=== PATIENT | female | born 1945 | race Caucasian/White ===

== ENCOUNTER 2022-03-05 12:02 | Day surgery (SDC) | payer MEDICARE ==
[~2022-03-05] VITALS: Ht 165.1 cm; Wt 101.5 kg
[~2022-03-05 12:02] MED LIST: HYDCHL25 PO; LEVSOD25 PO; Norco 5-325 Ta1 EACH PO
--- NOTE | 2022-03-05 13:59 | NUR ---
History, Chart, Medications and Allergies reviewed before start of procedure.Pre-Op teaching done. Pt verbalizes understanding. Patient confirms NPO status and agrees with scheduled surgery. Patient States Post-Procedure ride home has been arranged.
[2022-03-05] MEDS ORDERED: ACET500 PO (14:17)
--- NOTE | 2022-03-05 14:51 | NUR ---
1 MISSED ATTEMPT BY ORD.RMA R UPPER ARM
--- NOTE | 2022-03-05 14:53 | NUR ---
DR LYNN SAW PT BEFORE PT INTO DAY SURGERY. OPERATIVE SIDE MARKED BY SURGEON
--- NOTE | 2022-03-05 18:39 | NUR ---
1809-DR. LYNN NOTIFIED OF CONTINUED 10/10 PAIN AND ELEVATED BLOOD PRESSURE. PT WILL BE ADMITTED TO HOSPITALIST SERVICE
--- NOTE | 2022-03-05 19:00 | NUR ---
ARRIVAL TO UNIT TRANSFERED TO HOSPITAL BED & REPOSITIONED. L WRIST ELEVATED ON 2 PILLOWS. ICE PACK REAPPLIED. ICE WATER GIVEN. VS CHECKED & HTN CONTINUES.
--- NOTE | 2022-03-06 03:19 | NUR ---
PT ARRIVES TO THE FLOOR FROM THE PACU AT 1915. PT A&OX4 AND CALLS APPROPRIATELY. PT AMBULATES TO BR WITH MODERATE ASSISTANCE USING FWW. PT REPORTS 6 TO 7 OUT OF 10 PAIN, PRN MAURICIO 5MG GIVEN WITH GOOD RESULTS. TOLERATING PO FLUID AND GENERAL DIET, NO COMPLAINTS OF NAUSEA. PACU REPORTED MODERATE HYPERTENSION, BP HAS BEEN STABLE SINCE PT ARRIVES TO FLOOR. L WRIST REMAINS WRAPPED WITH NATHANIEL BANDAGE AND ICE USED FOR COMFORT. PT HAS GOOD RADIAL PULSE AND FINGER STRENGTH AND SENSATION IN LEFT HAND. PT IS ABLE TO MAKE NEEDS KNOWN. WILL CONTINUE TO MONITOR.
[2022-03-06 04:01] LABS: BASOPHILS ABSOLUTE AUTO 0.03 K/mm3 (0.00-0.23); BASOPHILS PERCENT AUTO 0 % (0-2); EOSINOPHILS ABSOLUTE AUTO 0.01 K/mm3 (0.00-0.68); EOSINOPHILS PERCENT AUTO 0 % (0-6); Hematocrit 38.1 % (33.0-51.0); Hemoglobin 12.6 g/dL (11.5-16.0); IMMATURE GRAN ABSOLUTE AUTO 0.08 K/mm3 (0.00-0.10); IMMATURE GRAN PERCENT AUTO 1 % (0-1); LYMPHOCYTES ABSOLUTE AUTO 1.56 K/mm3 (0.84-5.20); LYMPHOCYTES PERCENT AUTO 13 % (21-46); MONOCYTES ABSOLUTE AUTO 1.07 K/mm3 (0.16-1.47); MONOCYTES PERCENT AUTO 9 % (4-13); Mean Corpuscular HGB 31.3 pg (26.0-34.0); Mean Corpuscular HGB Conc 33.1 g/dL (31.5-36.5); Mean Corpuscular Volume 95 fL (80-100); Mean Platelet Volume 10.9 fL (9.1-12.4); NEUTROPHILS PERCENT AUTO 77 % (41-73); Platelet Count 216 K/mm3 (150-400); RDW Coefficient Variation 12.8 % (11.7-14.2); RDW Standard Deviation 44.3 fL (35.1-46.3); Red Blood Cell Count 4.02 M/mm3 (3.80-5.20); White Blood Cell Count 11.75 K/mm3 (4.00-11.30)
[2022-03-06 04:19] LABS: Alanine Aminotransfer (ALT/SGP 32 U/L (12-78); Albumin, Blood 3.2 g/dL (3.4-5.0); Albumin/Globulin Ratio 1.2 (0.8-1.8); Alk Phos 47 U/L (50-136); Anion Gap 8 mmol/L (6-16); Aspartate Aminotrans (AST/SGOT 13 U/L (12-37); Bilirubin, Total 0.5 mg/dL (0.1-1.0); Blood Urea Nitrogen 20 mg/dL (8-24); Bun/Creatinine Ratio 24.8 (12.0-20.0); CO2, Blood 26 mmol/L (21-32); Calcium, Blood 8.2 mg/dL (8.5-10.1); Chloride, Blood 107 mmol/L (98-108); Creatinine, Blood 0.81 mg/dL (0.40-1.00); Globulin, Blood 2.7 g/dL (2.2-4.0); Glomerular Filtration Rate >60 (60-); Glucose, Blood 117 mg/dL (70-99); Potassium, Blood 4.5 mmol/L (3.5-5.5); Sodium, Blood 141 mmol/L (136-145); Total Protein, Blood 5.9 g/dL (6.4-8.2)
[2022-03-06] MEDS ORDERED: ROXICODONE5 MG PO (13:23)
--- NOTE | 2022-03-06 15:06 | NUR ---
DISCHARGE SUMMARY PT DRESSED W/ ASSISTANCE BY DAUGHTER. PT'S DAUGHTER CARRIED PT BELONGINGS TO VEHICLE. PT'S ROOM CONFIRMED TO BE CLEAR OF PT BELONGINGS. PT WAS WHEELED OUT IN A WHEELCHAIR BY NURSING STAFF. PT ABLE TO ENTER PRIVATE VEHICLE W/ ASSISTANCE FROM STAFF. PT DEPARTED W/O INCIDENT.
--- NOTE | 2022-03-06 16:08 | NUR ---
DISCHARGE SUMMARY POD1 L WRIST ORIF, A/O X4, VSS, TOLERATING DIET, AMBULATING, VOIDING WELL. DISCUSSED DISCHARGE INFORMATION WITH THE PATIENT INCLUDING NEW PAIN MEDICATIONS, NO CHANGES TO PRIOR HOME MEDICATIONS, HOME CARE, FOLLOW UP APPOINTMENTS, AND CONTACT INFORMATION SHOULD THE PATIENT HAVE ANY QUESTIONS AFTER LEAVING. IV ACCESS REMOVED, PT ESCORTED OUT VIA WC BY C.O.D. BILLER TO PRIVATE AUTO WITH ALL PERSONAL POSESSIONS WITHOUT INCIDENT.
== END 2022-03-06 14:07 | disposition home or self-care (01) ==
LOC: ORD 12:02 → SURS 12:02 → ORSCMMR 12:03 → SURS 19:00 → ORD 03-06 14:07
PROVIDERS: Internal Medicine; Orthopaedic Surgery
PROC: 0PSJ04Z Reposition Left Radius with Internal Fixation Device, Open Approach (ICD-10-PCS; principal; 2022-03-05 14:00)
DX: S52.572A Other intraarticular fracture of lower end of left radius, initial encounter for closed fracture (principal); I10 Essential (primary) hypertension; E03.9 Hypothyroidism, unspecified; W18.30XA Fall on same level, unspecified, initial encounter; Z88.5 Allergy status to narcotic agent; Z88.2 Allergy status to sulfonamides
CPT/HCPCS: 36415; 80053; 85025; A9270; C1713; J0171; J0360; J0690; J1100; J1885; J2250; J2405; J2704; J3010; J7120